=== PATIENT | male | born 1950 | race Caucasian/White ===

== ENCOUNTER 2019-02-10 10:47 | Inpatient (IN) ==
--- NOTE | 2019-02-03 16:26 | PAT Medication Instructions ---
Medication Instructions Date of Service February 03, 2019 Home Medications amlodipine 10 mg PO QAM clobetasol 1 applic TOPICAL BID furosemide 20 mg PO QAM umeclidinium-vilanterol [Anoro Ellipta] 1 inh INHALATION DAILY STOP taking 24 hours before surgery clobetasol 1 applic TOPICAL BID DO NOT take the morning of surgery furosemide 20 mg PO QAM Take morning of surgery With a small sip of water, OTHERWISE NOTHING TO EAT OR DRINK AFTER MIDNIGHT: amlodipine 10 mg PO QAM umeclidinium-vilanterol [Anoro Ellipta] 1 inh INHALATION DAILY Other Notes If you have any questions please call us at [phone] or [phone] or [phone] or [phone]
--- NOTE | 2019-02-07 09:56 | Anesthesiology Consultation ---
Date of Service February 07, 2019 Assessment & Plan (1) Encounter for pre-operative examination: PCP Clearance (Ama Duong PA-C) 02/01/19 = "Pt okay to proceed on scheduled date of surgery as long as pre op testing including CBC, BMP, CXR and EKG do not show any acute changes." POSSIBLE DIFFICULT INTUBATION DUE TO CLEFT PALATE/ANATOMY Chart Review Chart Review: Acceptable Risk for Surgery and Patient seen in Pre Admission Testing Teaching & Discussion Instructed NPO after midnight before surgery, except medications with 15 cc of water. Medication instructions provided according to the PAT guidelines. History Surgery Operation Date: 02/10/19 12:35 Proposed Procedures p L4-L5 Decompression and Fusion, Spinal Cord Monitoring - Walter Chen, Height/Weight Height: 5 ft 7.75 in Weight: 105.2 kg Allergies Allergy/AdvReac Type Severity Reaction Status Date / Time aspirin Allergy Mild LIP Verified 02/03/19 12:56 SWELLING bee venom protein (honey bee) Allergy Mild SWELLING - Verified 02/03/19 12:56 ALL: TO MULTIPLE BEES ibuprofen Allergy Mild LIP Verified 02/03/19 12:56 SWELLING acetaminophen [From NyQuil] AdvReac Mild NIGHTMARES Verified 02/03/19 12:56 dextromethorphan AdvReac Mild NIGHTMARES Verified 02/03/19 12:56 [From NyQuil] doxylamine [From NyQuil] AdvReac Mild NIGHTMARES Verified 02/03/19 12:56 pseudoephedrine [From NyQuil] AdvReac Mild NIGHTMARES Verified 02/03/19 12:56 Medications Home Medications Medication Instructions Recorded Confirmed Last Taken amlodipine 10 mg PO QAM 02/03/19 02/03/19 Unknown clobetasol 1 applic TOPICAL BID 02/03/19 02/03/19 Unknown furosemide 20 mg PO QAM 02/03/19 02/03/19 Unknown umeclidinium-vilanterol [Anoro 1 inh INHALATION DAILY 02/03/19 02/03/19 Unknown Ellipta] Past Medical History Medical History Chronic obstructive pulmonary disease Cleft palate WEARS APPLIANCE Herniated disc L4-L5 PAIN IN BACK AND RADIATES DOWN RIGHT LEG Hypertension Obesity Venous stasis L > R LE. On Lasix daily Exercise / Class Metabolic Activity II 4-5 Yardwork/Stairs/Walk up hill (Limited by back pain but denies CP or SOB with stairs) Past Surgical History Surgical History Hx of cholecystectomy Hx of left inguinal hernia repair Hx of oral surgery FOR CLEFT LIP S/P excision of ganglion cyst LEFT WRIST S/P rotator cuff repair R side Past Anesthesia History No Hx of Anesthesia Complications and No Family Hx of Anesthesia Complications History of PONV No Hx of PONV and No Hx of Motion Sickness Social History Smoking Status: Current every day smoker tobacco type: cigarettes Smoking cigarettes per day: 1 PPD Do You Dip or Chew Tobacco: No Hx Alcohol Use: Yes Alcohol type: beer alcohol intake frequency: holidays/special occasions only Hx Substance Use: No substance use type: does not use Review of Systems Pt denies any recent chest pain, shortness of breath, palpitations, cough, fever or URI. Physical Exam Vital Signs BP: 139/79 P: 71bpm SPO2: 95% RA T: 98.0 F R: 18 Constitutional + obese ENMT Mouth: + dental restorations (one cap ); no chipped teeth and no loose teeth Thyromental Distance: > or= 3.5 Finger Breadths (4) Mallampati Class: I Pt has oral device for cleft palate that covers hole in palate. When pt removes device, large opening to nasopharynx visible. Palatopharyngeal arch intrudes into midline, but does not obstruct view of uvula. Pt only has one squaxin tooth, does not wear denture. Neck + short neck and + thick neck; neck extension not limited Respiratory normal respiratory effort Auscultation: lungs clear to auscultation bilaterally Cardiovascular Rate/Rhythm: regular rate and regular rhythm Heart Sounds: no murmur Vessels: no carotid bruit Extremities: + edema (trace non-pitting) Testing Laboratory Results 02/07/19 10:09 02/07/19 10:09 PT 10.7 Seconds (9.0-12.0) 02/07/19 10:09 INR 1.0 (0.9-1.1) 02/07/19 10:09 APTT 26.2 Seconds (21.0-31.0) 02/07/19 10:09 Urine Color Yellow 02/07/19 10:09 Urine Appearance Clear (Clear) 02/07/19 10:09 Urine pH 6.0 (4.5-7.5) 02/07/19 10:09 Ur Specific [place] 1.018 (1.000-1.030) 02/07/19 10:09 Urine Protein Negative (Negative) 02/07/19 10:09 Urine Glucose (UA) Negative (Negative) 02/07/19 10:09 Urine Ketones Negative (Negative) 02/07/19 10:09 Urine Nitrite Negative (Negative) 02/07/19 10:09 Ur Leukocyte Esterase Negative (Negative) 02/07/19 10:09 Blood Type B Positive 02/07/19 10:09 Antibody Screen NEGATIVE 02/07/19 10:09 Electrocardiogram Date: 02/07/19 Findings: + NSR @ (68) RBBB. Chest X-Ray Date: 06/10/18 Clear lungs with no evidence of pulmonary nodule. Minimal centrilobar emphysematous changes in the B/L lungs. Echocardiogram Date: 10/20/18 EF: 72% LV cavity size and wall thickness are normal. No LV mural thrombus. LV wall motion is normal. LV diastolic function is normal. All chambers normal in size and function. No significant valvular abnormalities.
[2019-02-07 10:30] LABS: Appearance Urine Clear (Clear); Bilirubin Urine Negative (Negative); Blood Urine Negative (Negative); Color Urine Yellow; Glucose Urine UA Negative (Negative); Ketones Urine Negative (Negative); Leukocyte Esterase Urine Negative (Negative); Nitrite Urine Negative (Negative); Protein Urine Negative (Negative); Specific Gravity Urine 1.018 (1.000-1.030); Urobilinogen Urine Negative (Negative)
[2019-02-07 10:31] LABS: Basophils # (auto) 0.02 K/uL (0-0.2); Basophils % (auto) 0.4 %; Eosinophils # (auto) 0.19 K/uL (0-0.5); Eosinophils % (auto) 3.5 %; Hematocrit (blood only) 48.8 % (42-52); Hemoglobin 17.8 g/dL (14.0-18.0); Immature Granulocytes # (auto) 0.01 K/uL (0.00-0.02); Immature Granulocytes % (auto) 0.2 %; Lymphocytes # (auto) 1.47 K/uL (1.2-3.4); Lymphocytes % (auto) 27.4 %; Mean Corpuscular Hgb Conc 36.5 g/dL (32-36); Mean Corpuscular Volume 87.5 fL (80-100); Mean Platelet Volume 9.2 fL (7.4-10.4); Monocytes # (auto) 0.55 K/uL (0.11-0.59); Monocytes % (auto) 10.3 %; Neutrophils # (auto) 3.12 K/uL (1.4-6.5); Neutrophils % (auto) 58.2 %; Platelet Count 178 K/uL (130-400); RDW Standard Deviation 41.6 fL (36.4-46.3); Red Blood Count 5.58 M/uL (4.7-6.1); White Blood Count 5.36 K/uL (4.8-10.8)
[2019-02-07 10:40] LABS: Partial Thromboplastin Time 26.2 Seconds (21.0-31.0); Prothrombin Time 10.7 Seconds (9.0-12.0)
[2019-02-07 13:15] LABS: Calcium 9.2 mg/dl (8.5-10.1); Est GFR (African American) 75.4; Potassium 3.7 mmol/L (3.5-5.1)
[~2019-02-10 10:47] MED LIST: CEFAZOLIN 2000MG 2,000 MG/15 ML SYR IV SCH; LR 15ML/HR IV SCH
[2019-02-10] MEDS ORDERED: fentaNYL citrate 100 MCG/2 ML VIAL ONE ×5 (11:56→14:00)
[2019-02-10] MEDS ORDERED: MIDAZOLAM HCL 1 MG/ML 2ML VIAL ONE (11:56)
--- NOTE | 2019-02-10 12:07 | History & Physical Bridge Note ---
Date of Service February 10, 2019 History & Physical Bridge Note I have examined the patient, reviewed the History & Physical and in the interval since the performance of the History & Physical I have noted the following changes of clinical significance: no changes noted
--- NOTE | 2019-02-10 12:09 | History & Physical Report ---
Date of Service February 10, 2019 Assessment & Plan (1) Spinal stenosis, lumbar region with neurogenic claudication: L4-L5 decompression and fusion Present on Admission?: Yes History of Present Illness Chief Complaint: Back and leg pain Primary Care Provider: Louise Mendes DO This is a 68-year-old male who presents with chronic back and leg pain. After failing extensive course of nonoperative care is here for surgical intervention. Allergies Allergy/AdvReac Type Severity Reaction Status Date / Time aspirin Allergy Mild LIP Verified 02/10/19 11:22 SWELLING bee venom protein (honey bee) Allergy Mild SWELLING - Verified 02/10/19 11:22 ALL: TO MULTIPLE BEES ibuprofen Allergy Mild LIP Verified 02/10/19 11:22 SWELLING acetaminophen [From NyQuil] AdvReac Mild NIGHTMARES Verified 02/10/19 11:22 dextromethorphan AdvReac Mild NIGHTMARES Verified 02/10/19 11:22 [From NyQuil] doxylamine [From NyQuil] AdvReac Mild NIGHTMARES Verified 02/10/19 11:22 pseudoephedrine [From NyQuil] AdvReac Mild NIGHTMARES Verified 02/10/19 11:22 Home Medications Home Medications Medication Instructions Recorded Confirmed Type amlodipine 10 mg PO QAM 02/03/19 02/10/19 History clobetasol 1 applic TOPICAL BID 02/03/19 02/10/19 History furosemide 20 mg PO QAM 02/03/19 02/10/19 History umeclidinium-vilanterol [Anoro 1 inh INHALATION DAILY 02/03/19 02/10/19 History Ellipta] Past Med/Surg History Social History Preferred Language: Macedonian Communication Ability: Effective Sales Inspector Required: No Beliefs That Will Affect Care: None Current Living Situation: Spouse Other Information That Helps Us Care for You: No Feels Safe at Home: Yes Safety Concerns: Feels Safe At This Time Smoking Status: Current every day smoker Tobacco Type: cigarettes Cigarettes Per Day: 1 PPD Do You Dip or Chew Tobacco: No Second Hand Exposure: No Tobacco Cessation Education Requested by Patient: No Hx Alcohol Use: Yes Alcohol type: beer Hx Substance Use: No Physical Exam Physical Exam: Patient is alert and oriented neurologically intact. Results & Data Vital Signs (Past 12 Hours) Vital Signs Temp Pulse Resp BP Pulse Ox 02/10/19 11:25 36.8 C 70 18 148/75 H 93
[2019-02-10] MEDS ORDERED: BUPIVACAINE/EPINEPHRINE 0.5% MPF 1:200,000 30 ML VIAL ONE (12:33)
[2019-02-10] MEDS ORDERED: BACITRACIN INJ 50,000 UNIT VIAL ONE (12:33)
[2019-02-10] MEDS ORDERED: HYDROmorphone INJ 2 MG/ML SYR/VIAL ONE (12:33)
[2019-02-10] MEDS ORDERED: FLOSEAL HEMOSTATIC MATRIX 10ML TOP ONE (13:27)
[2019-02-10] MEDS ORDERED: LIDOCAINE HCL 2% 2 ML VIAL/AMP(20MG/ML) INFIL ONE (13:30)
[2019-02-10] MEDS ORDERED: LARYING-O-JET KIT (LTA) ONE (13:30)
[2019-02-10] MEDS ORDERED: ROCURONIUM BROMIDE 10 MG/ML 5 ML VIAL ONE (13:30)
[2019-02-10] MEDS ORDERED: ePHEDrine sulfate 50 MG/ML SYR ONE (13:30)
[2019-02-10] MEDS ORDERED: GLYCOPYRROLATE 0.2 MG/ML VIAL ONE (13:30)
[2019-02-10] MEDS ORDERED: DEXAMETHASONE SOD INJ 4 MG/ML VIAL ONE (13:30)
[2019-02-10] MEDS ORDERED: ONDANSETRON INJ 2 MG/ML 2 ML VIAL ONE (13:30)
[2019-02-10] MEDS ORDERED: PROPOFOL IV EMULSION 10 MG/ML 20 ML VIAL IV ONE (13:30)
[2019-02-10] MEDS ORDERED: NEOSTIGMINE METHYLSULFATE 1 MG/ML 10ML VIAL ONE (13:30)
--- NOTE | 2019-02-10 15:09 | Operative Report ---
Post Operative Report Pre & Post Diagnosis Operation Date: 02/10/19 12:35 Pre-Op Diagnosis: Lumbar spinal stenosis with neurogenic claudication and radiculopathy Grade 2 spondylolisthesis Obesity Post-Op Diagnosis: Same Procedure Operation Date: 02/10/19 12:35 Actual Procedures #1 lumbar decompression with bilateral medial facetectomies foraminotomies L3-4 L4-5 L5-S1. #2 posterior spinal fusion L4-5 L5-S1. #3 placement posterior instrumentation L4-S1. #4 placement of local autograft in the posterior lateral gutters. #5 placement infuse collagen sponge bone mass graft in the posterior gutters L4-S1. Surgeon Walter Chen, DO Fashion Design Professor Valerio Weinstein Estimated Blood Loss 350 Findings See Below Patient is 5 foot 7 inches tall weighing 105 kg with a BMI of 35.6. The patient's body habitus added significant technical difficulty to the procedure requiring her deepest retractors and longus instruments in order to perform. This added 50% increase in operative time. Specimens None Indications This is a 60-year-old male presents with above-mentioned diagnosis after failing extensive course of nonoperative care like to undergo the above-mentioned procedure. Description of Procedure Patient was met with identified and informed consent obtained. Patient was then taken to the operative suite underwent intubation and placed in a prone position on the Rk table on top of the Waldemar frame. All bony prominences well- padded eyes inspected to ensure no external pressure placed upon the peer at this point the lumbar spine was prepped and draped in a normal sterile fashion. Sharp dissection with the assistance of Bovie cautery was performed down to and exposing the lamina and transverse processes of L4-L5 and sacral ala bilaterally. From a caudal cephalad fashion complete laminectomy of L5 L4 and partial laminectomy of L3 was performed including bilateral medial facetectomies foraminotomies addressing severe stenosis. Obvious bilateral pars defect and spina bifida occulta noted at L5. After decompression pedicle screws were placed in L4 and S1 bilaterally with assistance of fluoroscopy and the appropriate size michele locked in position. The transverse processes of L for 5 and S1 levels were then burred to subcortical bleeding bone. Infuse collagen sponge mass graft local autograft placed in the posterior lateral gutters. 15 round FRANKIE drain inserted. Incision was then closed with 1 Vicryl in the fascia 2-0 Vicryl subcutaneous layer and 4-0 Monocryl for final skin closure. Steri- Strip sterile dressings placed. Patient will continue to PACU stable condition. Please note Valerio Weinstein present throughout the entire procedure involved in patient positioning complex portions of the surgery closure. Lastly spinal cord monitoring was utilized that procedure no changes noted. I attest to the content of the Intraoperative Record and any orders documented therein. Any exceptions are noted below.
--- NOTE | 2019-02-10 15:16 | Fluoroscopy Report ---
FL lumbar spine 2-3V CLINICAL HISTORY: L4-5 DECOMPRESSION/FUSION COMPARISON STUDY: None. FLUOROSCOPY TIME: 25 seconds. FLUOROSCOPIC IMAGES: 2. FINDINGS: Posterior decompression is noted. There are bilateral pedicle screws at the L4 and S1 level s. Spondylolisthesis of L5 on S1 is noted. There are no unexpected radiopaque foreign bodies. IMPRESSION: Fluoroscopic images demonstrating posterior decompression L4-S1 bilateral pedicle screw fusion. Electronically signed by: Calvin Berman M.D. 02/10/2019 3:14 PM
[2019-02-10] MEDS ORDERED: PROMETHAZINE HCL 12.5 MG in SODIUM CHLORIDE 0.9% 50 ML IV PRN ×2 (16:03→16:51)
[2019-02-10] MEDS ORDERED: HYDROmorphone INJ 2 MG/ML SYR/VIAL IV PRN (16:03)
[2019-02-10] MEDS ORDERED: fentaNYL citrate 100 MCG/2 ML VIAL IV PRN (16:03)
[2019-02-10] MEDS ORDERED: ONDANSETRON INJ 2 MG/ML 2 ML VIAL IV PRN ×2 (16:03→16:51)
[2019-02-10] MEDS ORDERED: ePHEDrine sulfate 50 MG/ML AMP IV PRN (16:03)
[2019-02-10] MEDS ORDERED: ATROPINE SULFATE 0.1 MG/ML 10ML SYR IV PRN (16:03)
[2019-02-10] MEDS ORDERED: BISACODYL 10 MG SUPP PR PRN (16:51)
[2019-02-10] MEDS ORDERED: HYDROmorphone INJ 0.5 MG/0.5 ML SYR IV PRN (16:51)
[2019-02-10] MEDS ORDERED: ALUMINUM/MAGNESIUM SUSP 30 ML UDC PO PRN (16:51)
[2019-02-10] MEDS ORDERED: FAMOTIDINE 20 MG TAB PO PRN (16:51)
[2019-02-10] MEDS ORDERED: DO NOT ADMINISTER PNEUMOCOCCAL VACCINE PRN (16:51)
[2019-02-10] MEDS ORDERED: LORazepam 0.5 MG/1 ML VIAL IV PRN (16:51)
[2019-02-10] MEDS ORDERED: LORazepam 0.5 MG TAB PO PRN (16:51)
[2019-02-10] MEDS ORDERED: OXYCODONE HCL IR 5 MG TAB (IMMEDIATE RELEASE) PO PRN (16:51)
[2019-02-10] MEDS ORDERED: METOCLOPRAMIDE HCL INJ 5 MG/ML 2 ML VIAL IV PRN (16:51)
[2019-02-10] MEDS ORDERED: MAGNESIUM HYDROXIDE SUSP 30 ML UDC PO PRN (16:51)
[2019-02-10] MEDS ORDERED: DO NOT ADMINISTER FLU VACCINE PRN (16:51)
[2019-02-10] MEDS ORDERED: SOD PHOSPHATE/SOD BIPHOSPHATE ENEMA 132 ML BTL PR PRN (16:51)
[2019-02-10] MEDS ORDERED: ONDANSETRON 4 MG TAB PO PRN (16:51)
--- NOTE | 2019-02-10 16:59 | Anesthesiology Progress Note ---
Date of Service February 10, 2019 Anesthesia Post Procedure Vital Signs Vital Signs: Temp Pulse Pulse Resp BP Pulse Ox 02/10/19 16:35 78 14 130/69 95 02/10/19 16:25 37.0 C 78 16 134/70 94 02/10/19 16:15 80 15 139/71 97 02/10/19 16:05 82 15 139/73 95 02/10/19 15:55 85 14 133/81 94 02/10/19 15:46 36.6 C 86 12 134/77 95 02/10/19 11:25 36.8 C 70 18 148/75 H 93 Pain Intensity Lower Back: Pain Intensity: 2 Transfer of Care Handoff Completed per policy Notes Mental Status: alert / awake / arousable and participated in evaluation Patient Amnestic to Procedure: Yes Nausea / Vomiting: adequately controlled Pain: adequately controlled Airway Patency, RR, SpO2: stable & adequate BP & HR: stable & adequate Hydration State: stable & adequate Anesthetic Complications: no major complications apparent
--- NOTE | 2019-02-10 18:14 | Consultation ---
Date of Consultation February 10, 2019 Assessment & Plan (1) Spinal stenosis, lumbar region with neurogenic claudication: Lumbar stenosis with neurogenic claudication and radiculopathy S/P lumbar decompression and fusion by Dr. Chen POD # 0 Pain is controlled Monitor for post OP anemia Bowel regimen to prevent constipation Activity & DVT Px as per Primary team Receiving IV fluids COPD No signs of exacerbation Continue home inhalers, nebs as needed Titrate oxygen to maintain saturations between 88 to 92% Tobacco use disorder Nicotine patch ordered Counseled to quit smoking Chronic venous stasis Continue home dose of Lasix Hypertension Stable Continue amlodipine Monitor Prediabetes--As per records Currently not on any medications Check A1c Psoriasis Continue clobetasol cream DVT prophylaxis As per primary team Code Status Full Code Disposition As per primary team History of Present Illness Requesting Physician: Walter Chen DO Reason for Consultation: Postop medical management Attending Physician: Walter Chen DO History of Present Illness Patient is a 68-year-old male with history of COPD, hypertension, venous stasis, psoriasis, tobacco use disorder and prediabetes as per records was seen and exam ined postop after having lumbar decompression with bilateral medial facetectomies and spinal fusion by Dr. Chen today. Patient is doing well postop. He complains of low back pain at surgical site which is moderate, nonradiating. Denies any chest pain, shortness of breath, dizziness, nausea, abdominal pain, dysuria, diarrhea, headache. Currently offers no other complaints. Vitals are stable postop. Allergies Allergy/AdvReac Type Severity Reaction Status Date / Time aspirin Allergy Mild LIP Verified 02/10/19 11:22 SWELLING bee venom protein (honey bee) Allergy Mild SWELLING - Verified 02/10/19 11:22 ALL: TO MULTIPLE BEES ibuprofen Allergy Mild LIP Verified 02/10/19 11:22 SWELLING acetaminophen [From NyQuil] AdvReac Mild NIGHTMARES Verified 02/10/19 11:22 dextromethorphan AdvReac Mild NIGHTMARES Verified 02/10/19 11:22 [From NyQuil] doxylamine [From NyQuil] AdvReac Mild NIGHTMARES Verified 02/10/19 11:22 pseudoephedrine [From NyQuil] AdvReac Mild NIGHTMARES Verified 02/10/19 11:22 Home Medications Home Medications Medication Instructions Recorded Confirmed Type amlodipine 10 mg PO QAM 02/03/19 02/10/19 History clobetasol 1 applic TOPICAL BID 02/03/19 02/10/19 History furosemide 20 mg PO QAM 02/03/19 02/10/19 History umeclidinium-vilanterol [Anoro 1 inh INHALATION DAILY 02/03/19 02/10/19 History Ellipta] Patient History Social History Preferred Language: Danish Communication Ability: Effective Product Tester Fiberglass Required: No Beliefs That Will Affect Care: None Current Living Situation: Spouse Other Information That Helps Us Care for You: No Feels Safe at Home: Yes Safety Concerns: Feels Safe At This Time Smoking Status: Current every day smoker Tobacco Type: cigarettes Cigarettes Per Day: 1 PPD Do You Dip or Chew Tobacco: No Second Hand Exposure: No Tobacco Cessation Education Requested by Patient: No Hx Alcohol Use: Yes Alcohol type: beer Hx Substance Use: No Review of Systems Review of Systems: All systems reviewed & are unremarkable except as noted in HPI & below Physical Exam Physical Exam: Physical Exam: Vitals signs as noted above General Appearance:Moderately built and nourished, no apparent distress Head: normocephalic, Atraumatic Eyes: normal inspection, EOMI Neck: supple, Trachea midline Respiratory/Chest: Normal breath sounds, CTA Cardiovascular: S1, S2, No murmur Abdomen/GI:Soft, Non tender, Bowel sounds present Back: Surgical site in dressing,+ drain Extremities/Musculoskelatal:normal inspection, Trace edema Neurologic/Psych:AAOX3, grossly no focal neurological deficits Skin: normal color, warm Results & Data Vital Signs (Past 12 Hours) Vital Signs Temp Pulse Pulse Resp BP Pulse Ox 02/10/19 17:43 36.4 C L 82 17 126/72 94 02/10/19 17:15 36.4 C L 80 14 121/72 94 02/10/19 16:54 36.5 C 79 16 119/68 94 02/10/19 16:35 78 14 130/69 95 02/10/19 16:25 37.0 C 78 16 134/70 94 02/10/19 16:15 80 15 139/71 97 02/10/19 16:05 82 15 139/73 95 02/10/19 15:55 85 14 133/81 94 02/10/19 15:46 36.6 C 86 12 134/77 95 02/10/19 11:25 36.8 C 70 18 148/75 H 93 Medications Administered Current Inpatient Medications Al Hydrox/Mg Hydrox/Simethicone (Maalox) 30 ml PO Q6H PRN PRN Reason: Dyspepsia Stop: 03/12/19 16:50 Albuterol (Duoneb) 3 ml NEB Q6H PRN PRN Reason: Shortness Of Breath Or Wheezing Stop: 03/12/19 18:29 Amlodipine Besylate (Norvasc) 10 mg PO QAM GENEVIEVE Stop: 03/13/19 08:59 Bisacodyl (Dulcolax) 10 mg WI DAILY PRN PRN Reason: Constipation Stop: 03/12/19 16:50 Clobetasol Propionate (Clobetasol Propionate Oint) 1 appln EXT BID GENEVIEVE Stop: 03/12/19 20:59 Diphenhydramine HCl (Benadryl Capsule) 25 mg PO Q6H PRN PRN Reason: Allergic Rhinitis/Insomnia Stop: 03/12/19 16:50 Famotidine (Pepcid) 20 mg PO Q12H PRN PRN Reason: Dyspepsia Stop: 03/12/19 16:50 Furosemide (Lasix) 20 mg PO QAM GENEVIEVE Stop: 03/13/19 08:59 Hydromorphone HCl (Dilaudid) 0.5 - 1 mg IV Q3H PRN PRN Reason: Pain Stop: 02/24/19 16:50 Hydroxyzine HCl (Vistaril) 25 mg PO Q8H PRN PRN Reason: Anxiety Stop: 03/12/19 16:50 Sodium Chloride (Nss 1000ml) 1,000 mls @ 150 mls/hr IV .Q6H40M GENEVIEVE Stop: 03/12/19 16:50 Cefazolin Sodium (Ancef 2000mg) 2,000 mg in 15 mls @ 3.75 mls/min IV Q8H GENEVIEVE; Protocol Stop: 02/11/19 04:03 Lorazepam (Ativan) 0.5 mg in 1 mls @ 0.5 mls/min IV Q8H PRN PRN Reason: Sedation/Anxiety Stop: 03/12/19 16:50 Promethazine HCl 12.5 mg/ (Sodium Chloride) 50.5 mls @ 204 mls/hr IV Q6H PRN PRN Reason: Nausea &/or Vomiting Stop: 03/12/19 16:50 Influenza Virus Vaccine Quadrival (Flu Vaccine, Do Not Administer) 1 ea N/A PRN PRN PRN Reason: Notification Stop: 03/12/19 16:50 Lorazepam (Ativan) 0.5 mg PO Q8H PRN PRN Reason: Sedation/Anxiety Stop: 03/12/19 16:50 Magnesium Hydroxide (Milk Of Magnesia) 30 ml PO DAILY PRN PRN Reason: Constipation Stop: 03/12/19 16:50 Metoclopramide HCl (Reglan) 10 mg IV Q6H PRN PRN Reason: Nausea &/or Vomiting Stop: 03/12/19 16:50 Miscellaneous (Order Awaiting Action) 1 ea N/A QS GENEVIEVE Stop: 03/13/19 00:00 Miscellaneous (Remove Nicoderm Patch) 1 ea N/A HS GENEVIEVE Stop: 03/12/19 20:59 Nicotine (Nicoderm Cq) 21 mg TD QAM GENEVIEVE Stop: 03/12/19 18:29 Ondansetron HCl (Zofran Tab) 4 mg PO Q6H PRN PRN Reason: Nausea Stop: 03/12/19 16:50 Ondansetron HCl (Zofran) 4 mg IV Q6H PRN PRN Reason: Nausea &/or Vomiting Stop: 03/12/19 16:50 Oxycodone HCl (Roxicodone Immediate Rel) 5 - 10 mg PO Q4H PRN PRN Reason: Moderate-Severe Pain Stop: 02/24/19 16:50 Pneumococcal Polyvalent Vaccine (Pneumococcal Vacc, Do Not Administer) 1 ea N/A PRN PRN PRN Reason: Notification Stop: 03/12/19 16:50 Polyethylene Glycol (Miralax Powder Packet) 17 gm PO Q6 GENEVIEVE Stop: 03/13/19 05:59 Senna/Docusate Sodium (Senokot S) 2 tab PO HS GENEVIEVE Stop: 03/12/19 20:59 Sodium Biphosphate/Sodium Phosphate (Fleet Enema) 132 ml WI ONE PRN PRN Reason: Constipation Stop: 03/12/19 16:50 Tramadol HCl (Ultram) 50 - 100 mg PO Q4H PRN PRN Reason: Moderate-Severe pain Stop: 03/12/19 16:50
[2019-02-10] MEDS ORDERED: ALBUT/IPRATROP 3MG/0.5MG NEB 3 ML VIAL NEB PRN (18:27)
[2019-02-10] MEDS: TRAMADOL HCL 50 MG TABLET PO PRN (19:44)
[2019-02-10] MEDS: NICOTINE 21 MG/24 HR TDSY TD SCH (19:45)
[2019-02-10] MEDS: SODIUM CHLORIDE 0.9% 1000ML 1,000 ML IV SCH (19:49)
[2019-02-10] MEDS: CLOBETASOL PROPIONATE 0.05% OINT 15 GM TUBE EXT SCH (20:49)
[2019-02-10] MEDS: DOCUSATE SODIUM/SENNA 50/8.6MG TAB PO SCH (20:54)
[2019-02-10] MEDS: CEFAZOLIN 2000MG 2,000 MG/15 ML SYR IV SCH (20:54)
[2019-02-11] MEDS: SODIUM CHLORIDE 0.9% 1000ML 1,000 ML IV SCH (02:23)
[2019-02-11] MEDS: POLYETHYLENE (MIRALAX) 17 GM PACK PO SCH ×3 (04:58→18:36)
[2019-02-11] MEDS: CEFAZOLIN 2000MG 2,000 MG/15 ML SYR IV SCH (04:58)
[2019-02-11 06:26] LABS: Basophils # (auto) 0.01 K/uL (0-0.2); Basophils % (auto) 0.1 %; Hematocrit (blood only) 41.2 % (42-52); Hemoglobin 14.6 g/dL (14.0-18.0); Immature Granulocytes # (auto) 0.05 K/uL (0.00-0.02); Immature Granulocytes % (auto) 0.4 %; Lymphocytes # (auto) 0.63 K/uL (1.2-3.4); Lymphocytes % (auto) 5.5 %; Mean Corpuscular Hgb Conc 35.4 g/dL (32-36); Mean Corpuscular Volume 87.1 fL (80-100); Mean Platelet Volume 9.6 fL (7.4-10.4); Monocytes # (auto) 0.62 K/uL (0.11-0.59); Monocytes % (auto) 5.4 %; Neutrophils # (auto) 10.22 K/uL (1.4-6.5); Neutrophils % (auto) 88.6 %; Platelet Count 200 K/uL (130-400); RDW Coefficient of Variation 12.9 % (11.5-14.5); RDW Standard Deviation 41.8 fL (36.4-46.3); Red Blood Count 4.73 M/uL (4.7-6.1); White Blood Count 11.53 K/uL (4.8-10.8)
[2019-02-11 07:02] LABS: BUN Creatinine Ratio 12.4 (10-20); Calcium 8.2 mg/dl (8.5-10.1); Creatinine Clr Calc Pharmacy 66.8 ml/min; Est GFR (African American) 68.8; Est GFR (Non-African American) 59.4
[2019-02-11 07:56] LABS: Estimated Average Glucose 126 mg/dl
[2019-02-11] MEDS: CLOBETASOL PROPIONATE 0.05% OINT 15 GM TUBE EXT SCH ×2 (08:43→20:35)
[2019-02-11] MEDS: NICOTINE 21 MG/24 HR TDSY TD SCH (08:44)
[2019-02-11] MEDS: AMLODIPINE BESYLATE 5 MG TAB PO SCH (08:44)
[2019-02-11] MEDS: TRAMADOL HCL 50 MG TABLET PO PRN ×2 (08:49→20:40)
--- NOTE | 2019-02-11 08:49 | Orthopedic Progress Note ---
Date of Service February 11, 2019 Assessment & Plan (1) Spinal stenosis, lumbar region with neurogenic claudication: The patient is stable postop day #1. We will have physical therapy see him for ambulation and gait training. We will continue with GI DVT prophylaxis as well as pain control. He will likely be with us throughout the weekend and likely discharged home on Wednesday. Subjective Patient was seen bedside postoperative day #1. He is doing quite well this morning. His leg pain has significantly improved. He is not having much in way back pain other than some pressure. He has been up and walking without much discomfort. He denies any other numbness, tingling, or paresthesias. Physical Exam Physical Exam: On exam patient is alert and oriented. He has full strength in both lower extremities. His dressings clean dry and intact. His abdomen is soft and nontender. His calves are supple nontender. His FRANKIE drain is in place and is holding suction. Results & Data Vital Signs (Past 12 Hours) Vital Signs Temp Pulse Resp BP BP Pulse Ox 02/11/19 07:11 36.6 C 74 16 133/70 92 02/11/19 03:30 36.5 C 82 18 125/73 93 02/10/19 23:35 36.4 C L 79 16 124/73 96
[2019-02-11] MEDS: FUROSEMIDE 20 MG TAB PO SCH (09:35)
--- NOTE | 2019-02-11 15:38 | Hospitalist Progress Note ---
Date of Service February 11, 2019 Assessment & Plan (1) Spinal stenosis, lumbar region with neurogenic claudication: Lumbar stenosis with neurogenic claudication and radiculopathy S/P lumbar decompression and fusion by Dr. Chen POD # 1 Pain is controlled Monitor for post OP anemia Bowel regimen to prevent constipation Activity & DVT Px as per Primary team Receiving IV fluids COPD No signs of exacerbation Continue home inhalers, nebs as needed Titrate oxygen to maintain saturations between 88 to 92% Tobacco use disorder Nicotine patch ordered Counseled to quit smoking Chronic venous stasis Continue home dose of Lasix Hypertension Stable Continue amlodipine Monitor Prediabetes--As per records Currently not on any medications Hb A1c:6.0 Psoriasis Continue clobetasol cream DVT prophylaxis As per primary team Code Status Full Code Disposition As per primary team Subjective Patient is seen and examined at bedside Back pain at surgical site is controlled + Flatus, no bowel movement yet Denies any chest pain, shortness of breath, nausea vomiting, abdominal pain Review of Systems Review of Systems: All systems reviewed & are unremarkable except as noted in HPI & below Physical Exam Physical Exam: Physical Exam: Vitals signs as noted above General Appearance:Moderately built and nourished, no apparent distress Head: normocephalic, Atraumatic Eyes: normal inspection, EOMI Neck: supple, Trachea midline Respiratory/Chest: Normal breath sounds, CTA Cardiovascular: S1, S2, No murmur Abdomen/GI:Soft, Non tender, Bowel sounds present Back: Surgical site in dressing,+ drain Extremities/Musculoskelatal:normal inspection, Trace edema Neurologic/Psych:AAOX3, grossly no focal neurological deficits Skin: normal color, warm Results & Data Vital Signs (Past 12 Hours) Vital Signs Temp Pulse Resp BP Pulse Ox 02/11/19 15:14 36.5 C 79 17 131/71 96 02/11/19 10:55 36.4 C L 79 16 140/61 95 02/11/19 07:11 36.6 C 74 16 133/70 92 Laboratory Results Short CBC 02/11/19 Range/Units 05:13 WBC 11.53 H (4.8-10.8) K/uL Hgb 14.6 (14.0-18.0) g/dL Hct 41.2 L (42-52) % Plt Count 200 (130-400) K/uL BMP 07/20/19 05:13 Sodium 137 Potassium 4.0 Chloride 102 Carbon Dioxide 29 BUN 15 Creatinine 1.24 Glucose 124 H Calcium 8.2 L
[2019-02-11] MEDS: DOCUSATE SODIUM/SENNA 50/8.6MG TAB PO SCH (20:36)
[2019-02-12 05:52] LABS: Hematocrit (blood only) 42.7 % (42-52); Hemoglobin 14.8 g/dL (14.0-18.0); Mean Corpuscular Hgb Conc 34.7 g/dL (32-36); Mean Corpuscular Volume 87.7 fL (80-100); Mean Platelet Volume 9.5 fL (7.4-10.4); Platelet Count 201 K/uL (130-400); RDW Coefficient of Variation 13.2 % (11.5-14.5); RDW Standard Deviation 42.3 fL (36.4-46.3); Red Blood Count 4.87 M/uL (4.7-6.1); White Blood Count 9.31 K/uL (4.8-10.8)
[2019-02-12 06:21] LABS: BUN Creatinine Ratio 18.1 (10-20); Calcium 8.3 mg/dl (8.5-10.1); Creatinine Clr Calc Pharmacy 73.3 ml/min; Est GFR (Non-African American) 66.4; Potassium 4.1 mmol/L (3.5-5.1)
[2019-02-12] MEDS: TRAMADOL HCL 50 MG TABLET PO PRN ×2 (07:18→22:08)
--- NOTE | 2019-02-12 07:38 | Orthopedic Progress Note ---
Date of Service February 12, 2019 Assessment & Plan (1) Spinal stenosis, lumbar region with neurogenic claudication: Patient is doing well postoperative day #2. Continue with GI DVT prophylaxis continue pain control measures. We will monitor his FRANKIE output and in all likelihood will be able to get him home tomorrow. Subjective Patient was seen bedside in room 302 postoperative day #2. He was having some back pain last night but the pain is well controlled with pain medication. He is not having any radicular complaints at this point. Overall he has had no issues. He has had a bowel movement and is tolerating oral intake without difficulties. He denies any other numbness, tingling, or paresthesias. Physical Exam Physical Exam: On exam he is alert and oriented. His abdomen soft nontender. His calves are supple and nontender. His strength and sensation both intact his dressings clean dry and intact. His FRANKIE drain is in place and has had 70 cc of drainage since last documented. Results & Data Vital Signs (Past 12 Hours) Vital Signs Temp Pulse Resp BP Pulse Ox 02/11/19 23:00 36.8 C 89 18 131/72 92
[2019-02-12] MEDS: CLOBETASOL PROPIONATE 0.05% OINT 15 GM TUBE EXT SCH ×2 (08:14→20:44)
[2019-02-12] MEDS: FUROSEMIDE 20 MG TAB PO SCH (08:44)
[2019-02-12] MEDS: NICOTINE 21 MG/24 HR TDSY TD SCH (08:44)
[2019-02-12] MEDS: AMLODIPINE BESYLATE 5 MG TAB PO SCH (08:45)
--- NOTE | 2019-02-12 18:24 | Hospitalist Progress Note ---
Date of Service February 12, 2019 Assessment & Plan (1) Spinal stenosis, lumbar region with neurogenic claudication: Lumbar stenosis with neurogenic claudication and radiculopathy S/P lumbar decompression and fusion by Dr. Chen POD # 2 Pain is controlled Monitor for post OP anemia Bowel regimen to prevent constipation Activity & DVT Px as per Primary team Receiving IV fluids Likely discharge home tomorrow as per primary team Monitor drain output COPD No signs of exacerbation Continue home inhalers, nebs as needed Titrate oxygen to maintain saturations between 88 to 92% Tobacco use disorder Nicotine patch ordered Counseled to quit smoking Chronic venous stasis Continue home dose of Lasix Hypertension Stable Continue amlodipine Monitor Prediabetes--As per records Currently not on any medications Hb A1c:6.0 Psoriasis Continue clobetasol cream DVT prophylaxis As per primary team Code Status Full Code Disposition As per primary team Subjective Patient is seen and examined at bedside Had back pain overnight at surgical site Poor sleep secondary to pain Had bowel movement Denies any chest pain, shortness of breath, nausea vomiting, abdominal pain Review of Systems Review of Systems: All systems reviewed & are unremarkable except as noted in HPI & below Physical Exam Physical Exam: Physical Exam: Vitals signs as noted above General Appearance:Moderately built and nourished, no apparent distress Head: normocephalic, Atraumatic Eyes: normal inspection, EOMI Neck: supple, Trachea midline Respiratory/Chest: Normal breath sounds, CTA Cardiovascular: S1, S2, No murmur Abdomen/GI:Soft, Non tender, Bowel sounds present Back: Surgical site in dressing,+ drain Extremities/Musculoskelatal:normal inspection, Trace edema Neurologic/Psych:AAOX3, grossly no focal neurological deficits Skin: normal color, warm Results & Data Vital Signs (Past 12 Hours) Vital Signs Temp Pulse Resp BP BP Pulse Ox 02/12/19 14:58 36.7 C 83 18 153/74 H 94 02/12/19 07:21 36.7 C 83 20 150/76 H 93 Laboratory Results Short CBC 02/12/19 Range/Units 05:22 WBC 9.31 (4.8-10.8) K/uL Hgb 14.8 (14.0-18.0) g/dL Hct 42.7 (42-52) % Plt Count 201 (130-400) K/uL BMP 02/12/19 05:22 Sodium 134 L Potassium 4.1 Chloride 99 Carbon Dioxide 33 H BUN 20 H Creatinine 1.13 Glucose 113 H Calcium 8.3 L
[2019-02-12] MEDS: DOCUSATE SODIUM/SENNA 50/8.6MG TAB PO SCH (20:45)
[2019-02-13] MEDS: NICOTINE 21 MG/24 HR TDSY TD SCH (08:17)
[2019-02-13] MEDS: FUROSEMIDE 20 MG TAB PO SCH (08:17)
[2019-02-13] MEDS: AMLODIPINE BESYLATE 5 MG TAB PO SCH (08:17)
[2019-02-13] MEDS: CLOBETASOL PROPIONATE 0.05% OINT 15 GM TUBE EXT SCH (08:18)
--- NOTE | 2019-02-13 10:37 | Anesthesiology Progress Note ---
Date of Service February 13, 2019 Anesthesia Post Procedure Vital Signs Vital Signs: Temp Pulse Pulse Resp BP BP Pulse Ox 02/13/19 08:15 82 129/69 02/13/19 06:48 36.8 C 82 18 123/64 92 02/13/19 04:02 36.6 C 70 16 144/69 H 96 02/12/19 22:55 36.8 C 92 H 16 120/70 91 02/12/19 14:58 36.7 C 83 18 153/74 H 94 Pain Intensity Lower Back: Pain Intensity: 1 Notes Mental Status: alert / awake / arousable Patient Amnestic to Procedure: Yes Nausea / Vomiting: adequately controlled Pain: adequately controlled Airway Patency, RR, SpO2: stable & adequate BP & HR: stable & adequate Hydration State: stable & adequate Anesthetic Complications: no major complications apparent
--- NOTE | 2019-02-13 11:15 | Discharge Summary ---
Date of Service February 13, 2019 Admission HPI Per Admitting Provider This is a 68-year-old male who presents with chronic back and leg pain. After failing extensive course of nonoperative care is here for surgical intervention. Principal Diagnosis Lumbar spinal stenosis with neurogenic claudication Discharge Data Allergies Allergy/AdvReac Type Severity Reaction Status Date / Time aspirin Allergy Mild LIP Verified 02/10/19 11:22 SWELLING bee venom protein (honey bee) Allergy Mild SWELLING - Verified 02/10/19 11:22 ALL: TO MULTIPLE BEES ibuprofen Allergy Mild LIP Verified 02/10/19 11:22 SWELLING acetaminophen [From NyQuil] AdvReac Mild NIGHTMARES Verified 02/10/19 11:22 dextromethorphan AdvReac Mild NIGHTMARES Verified 02/10/19 11:22 [From NyQuil] doxylamine [From NyQuil] AdvReac Mild NIGHTMARES Verified 02/10/19 11:22 pseudoephedrine [From NyQuil] AdvReac Mild NIGHTMARES Verified 02/10/19 11:22 Consultations 02/10/19 16:51 Consult Case Management - Discharge Planning Routine Consult Hospitalist Routine Procedures Performed Operation Date: 02/10/19 12:35 Actual Procedures p L4-S1 Decompression and Fusion with Spinal Cord Monitoring, Application of Allograft and Bone Morphogenetic Protein (Not Applicable) - Walter Chen DO Ordered Studies 02/10/19 12:35 FL fluoroscopy <1hr Routine FL lumbar spine 2-3V Routine Hospital Course (1) Spinal stenosis, lumbar region with neurogenic claudication: Patient underwent lumbar decompression fusion tolerated this well was taken to the orthopedic for postoperative. Postop day 1 he was up and ambulating progressed to postop day #2. FRANKIE drain decreasing appropriately. Leg pain markedly improved. Subsequently discharged home on postop day #3. Discharge orders and instructions found chart for further review. Total Time Total Time Spent Total Time Spent (In Minutes): 20 minutes Discharge Plan Discharge Items Patient Disposition: Home - Self-Care Reason For Visit: Spinal Stenosis, Lumbar Region without Neurogenic Discharge Diagnosis: Lumbar spinal stenosis with neurogenic claudication Discharge Goals: Improve function Activity: Per 'Additional Instructions' section Non-emergency contact: Primary Care Provider Call non-emergency contact if: you have any medication questions Follow-up/Referrals: Louise Mendes DO [Primary Care Provider] - Diet: Regular Addtl Provider Instructions: ACTIVITY RECOMMENDATIONS: SELF CARE INSTRUCTIONS AFTER THORACIC/LUMBAR FUSIONS 1. You may walk to your tolerance. It is good exercise for your legs and back. Expect some back and intermittent leg aches and pains. 2. You may perform "counter-top" level activities (make a sandwich, abiel with a project, etc.). 3. No bending or lifting of more than 10 pounds or back twisting of any nature (roll like a log when turning in bed). 4. You may ride in a car for 20-30 minutes at a time. No driving until after your first visit with your doctor. 5. Frequent changes of position and restricting sitting to 30 minutes at a time will help limit the amount of back spasms and stiffness you may experience. 6. You may discontinue the use of ambulatory aids (cane, crutches, etc.) once your strength and confidence allow. 7. You may machine dyer the shower and let water strike your incision when you arrive home at least once daily. Do not take a tub bath, sit in a hot tub or go into a swimming pool until after your first recheck in the office. SPECIAL CARE INSTRUCTIONS: VERY IMPORTANT TO READ AND REVIEW A. Your surgical incision has been closed with a cosmetic suture under the skin that will dissolve in about 6 weeks. In 14 days, you can use a pair of clean scissors and cut the suture that is left outside of the skin at the ends of your incision. 1. The small skin tapes can be removed 7 days after surgery if they have not fallen off by that point. 2. You may keep the wound open to air as much as possible to promote healing after post-op day number 5 unless told otherwise by your doctor. 3. If you think the wound looks like it is becoming infected (redness or worsening drainage) and/or you are experiencing fever, chill or worsening back pain and muscle spasms, contact the office so that we may evaluate you as soon as possible. B. Complications are uncommon, but please contact us if you have any signs or symptoms of: 1. wound infection (fever higher than 102.5 degrees F, redness, separation of wound, drainage, or increasing pain from the incision) 2. blood clots in legs (pain, swelling, redness and warmth in legs) 3. urinary tract infection (fever higher than 102.5 degrees F, burning upon urination or increased frequency of urination) 4. nerve problems (inability to walk on your toes or heels, numbness, loss of bowel or bladder control) 5. any other symptoms that concern you C. Please call the office at if you have any concerns or questions about your operation or recovery. D. No smoking! Smoking drastically decreases the chance of a solid fusion. E. Do not take any anti-inflammatory medications (Indocin, Advil, Motrin, Aspirin, Naprosyn, etc.) as these may inhibit the chance of a solid fusion. Tylenol is okay to take for pain. MANAGING PAIN AFTER SPINAL SURGERY 1. Narcotic medication is intended for short-term use and will be provided for surgical pain. Surgical pain usually lasts for a period of 4-6 weeks. Narcotic medication includes Percocet, Vicodin, Darvocet, Tylenol #3 or Lortab. 2. Longer-term pain is more appropriately treated with non-narcotic medication such as Tylenol ES. 3. Muscle spasm is not appropriately treated with narcotics. Muscle relaxers such as Soma, Flexeril or Skelaxin can be used along with Tylenol ES. 4. Remember that we all live with some "aches and pains". This is not unusual or uncommon after an injury or as we get older. a. Back pain is expected and may include muscle spasms for 4 to 6 weeks after surgery. The pain should gradually improve. If the pain worsens for no apparent reason, please contact the office. b. Intermittent leg pain may also be experienced and should not be concerned about unless it worsens for no apparent reason. If so, please contact the office. 5. We will provide appropriate medication within the normal guidelines of their prescribed use. We will also be very cautious and aware of potential abuse and extended duration of patients' medication needs. a. Pain medications are for your comfort and to assist with sleep and rest so that the tissue can heal. They are not provided in order to return to normal activity and should not be used through the day. To do so or worsening pain at night can result from ongoing tissue damage and development of tolerance to the prescribed medicine. 6. Please allow 2-3 days to process refills. Prescriptions will not be mailed but must be picked up at the office. FOLLOW UP VISIT: Keep your scheduled follow-up appointment. Any questions, please call the office at . Prescriptions: New tramadol 50 mg Tablet 50 mg PO Q4H PRN (Reason: Pain, Moderate) Qty: 30 RF: 0 oxycodone 5 mg Tablet 5 mg PO Q4H PRN (Reason: Pain, Severe) Qty: 30 RF: 0 Continued amlodipine 10 mg Tablet 10 mg PO QAM RF: 0 furosemide 20 mg Tablet 20 mg PO QAM RF: 0 clobetasol 0.05 % Ointment 1 applic TOPICAL BID RF: 0 Anoro Ellipta 62.5-25 mcg/actuation Blister With Device 1 inh INHALATION DAILY RF: 0 Stand-Alone Forms: [employer] [facility] [employer]/Other Patient Handouts: Prediabetes, Diabetes Meal Planning Discharge Orders: Discharge Order (Routine); Ordered 02/13/19 Ordered By: Walter Chen Admission Data Admit Date/Time: 02/10/19 15:12 Attending Provider: Walter Chen Admit Provider: Walter Chen Primary Care Provider: Louise Mendes Other Providers: Marcellus Valencia ; César Laird Service: Surgical Services
--- NOTE | 2019-02-13 13:33 | Hospitalist Progress Note ---
Date of Service February 13, 2019 Assessment & Plan (1) Spinal stenosis, lumbar region with neurogenic claudication: Lumbar stenosis with neurogenic claudication and radiculopathy S/P lumbar decompression and fusion by Dr. Chen POD # 3 Pain is controlled Monitor for post OP anemia Bowel regimen to prevent constipation Activity & DVT Px as per Primary team Received IV fluids Planned to be discharged home today Drain removed COPD No signs of exacerbation Continue home inhalers, nebs as needed Titrate oxygen to maintain saturations between 88 to 92% Tobacco use disorder Nicotine patch ordered Counseled to quit smoking Chronic venous stasis Continue home dose of Lasix Hypertension Stable Continue amlodipine Monitor Prediabetes--As per records Currently not on any medications Hb A1c:6.0 Psoriasis Continue clobetasol cream DVT prophylaxis As per primary team Code Status Full Code Disposition As per primary team Subjective Patient is seen and examined at bedside Has minimal back pain at surgical site No new complaints Denies any chest pain, shortness of breath, nausea vomiting, abdominal pain Plan to be discharged home today Review of Systems Review of Systems: All systems reviewed & are unremarkable except as noted in HPI & below Physical Exam Physical Exam: Physical Exam: Vitals signs as noted above General Appearance:Moderately built and nourished, no apparent distress Head: normocephalic, Atraumatic Eyes: normal inspection, EOMI Neck: supple, Trachea midline Respiratory/Chest: Normal breath sounds, CTA Cardiovascular: S1, S2, No murmur Abdomen/GI:Soft, Non tender, Bowel sounds present Back: Surgical site in dressing,+ drain Extremities/Musculoskelatal:normal inspection, Trace edema Neurologic/Psych:AAOX3, grossly no focal neurological deficits Skin: normal color, warm Results & Data Vital Signs (Past 12 Hours) Vital Signs Temp Pulse Pulse Resp BP BP Pulse Ox 02/13/19 08:15 82 129/69 02/13/19 06:48 36.8 C 82 18 123/64 92 02/13/19 04:02 36.6 C 70 16 144/69 H 96
== END 2019-02-13 12:55 | disposition home or self-care (01) | DRG 460 ==
LOC: ASU 10:47 → 3E 15:12